=== PATIENT | female | born 1980 | race American Indian/Alaskan Native ===

== ENCOUNTER 2018-11-08 07:05 | Day surgery (SDC) | payer OTHER ==
[~2018-11-08] VITALS: Ht 162.6 cm; Wt 99.8 kg
[~2018-11-08 07:05] MED LIST: DAILY MULTIPLE1 EACH PO; PRENATABS RX T1 EACH PO; SERTRALINE HCL100 MG PO; VITAMIN D2000 UNIT PO
[2018-11-08] MEDS ORDERED: IRON325 M1 PO (07:24)
--- NOTE | 2018-11-08 09:00 | NUR ---
11/08/18 0900 Angelita Padilla 0870 PT ARRIVED TO PACU ON 3L VIA MASK, PT WAKES TO VERBAL STIMULI AND DENIES PAIN AND NAUSEA. PT BACK TO SLEEP. 0855 PT WAKES AND IS REORIENTED TO PACU, O2 REMOVED AND PT SIPPING JUICE AND WATER. HOB INCREASED. PLAN OF CARE DISCUSSED.
--- NOTE | 2018-11-09 08:17 | OR ---
[facility] [address], [place] [address] Signed DATE OF OPERATION: 11/08/2018 SURGEON: Boyd Choi MD PREOPERATIVE DIAGNOSES: 1. Epigastric abdominal pain. 2. Proximal esophageal dysphagia. 3. Iron-deficiency anemia. POSTOPERATIVE DIAGNOSIS: Mild punctate hemorrhagic gastritis. PROCEDURE PERFORMED: Esophagogastroduodenoscopy with CLOtest and biopsies of the antrum and gastroesophageal junction. ESTIMATED BLOOD LOSS: None. INDICATIONS: Lyndsay is a 38-year-old female, asked to see me for upper endoscopy. She has had epigastric abdominal pain. She is not sure what makes it better or worse. She also describes proximal esophageal dysphagia up around the larynx and the sternal notch. She said even water can cause some dysphagia. She has developed iron-deficiency anemia. She has been on iron tablets. In the office, I gave Lyndsay a pamphlet on upper endoscopy. We looked at that together in detail. She understands the nature of the test along with the risks including, but not limited to, gas, bloating, crampy abdominal pain, bleeding, perforation requiring surgery, and missed diagnosis. She also understands the need for IV conscious sedation. She had expressed her understanding and wished to proceed. DESCRIPTION OF PROCEDURE: Lyndsay was taken into the endoscopy suite and placed in the supine position. The posterior oropharynx was anesthetized with lidocaine spray. A bite block was utilized for the case. She was given a total of 6 mg of Versed and 100 mcg of fentanyl to cover the case. The adult gastroscope was introduced and advanced out to the third portion of the duodenum under direct visualization of camera without difficulty. The duodenum and pyloric channel were unremarkable. She clearly has mild punctate hemorrhagic diffuse gastritis. I am sure this is the source of her iron-deficiency anemia. No donny ulcerations. We took a biopsy from the antrum for CLOtest as well as pathologic review. Electronically Signed By: BOYD CHOI MD 11/09/18 0817 PATIENT NAME: LYNDSAY SANCHEZ OPERATIVE REPORT DATE OF : 76 REPORT #: [id number] PHYSICIAN: BOYD CHOI MD PCP: NAYLA JI REPORT IS CONFIDENTIAL AND NOT TO BE RELEASED WITHOUT AUTHORIZATION [facility] [address], [place] [address] Signed We took multiple pictures throughout for photodocumentation. Upon retroflexion of the scope, she may have just a very tiny hiatal hernia. Otherwise, no gastric or esophageal varices. The scope was withdrawn up to the area of the GE junction, which was compliant without stricture. She does have some granulation tissue along the Z-line with a little irritation. No Nielsen's mucosa. No distal, middle, or upper esophagitis. We did look carefully as we withdrew the scope and we saw no irritation in the upper esophagus. We had taken an additional biopsy at the GE junction for pathologic review. After this, the gas was suctioned out and the gastroscope removed. Lyndsay tolerated the procedure quite well. RECOMMENDATIONS: I will see Lyndsay back in my office in 7 to 14 days to review her results. Boyd Choi MD ALB/MODL /[id number] cc: Nayla Choi MD Copies: NAYLA JI ANDREW L MD ~ Electronically Signed By: BOYD CHOI MD 11/09/18 0817 PATIENT NAME: LYNDSAY SANCHEZ OPERATIVE REPORT DATE OF : 76 REPORT #: [id number] PHYSICIAN: BOYD CHOI MD PCP: NAYLA JI REPORT IS CONFIDENTIAL AND NOT TO BE RELEASED WITHOUT AUTHORIZATION
--- NOTE | 2018-11-12 14:44 | PATH ---
[facility] [address] [place], [place] [address] Signed SPECIMEN(S): A ANTRUM SPECIMEN(S): B GE JUNCTION SPECIMEN SOURCE: A. ANTRUM B. GE JUNCTION CLINICAL HISTORY: Epigastric pain; esophageal dysphagia; anemia. Postop: Mild hemorrhagic gastritis. MICROSCOPIC DESCRIPTION: Histologic sections of all submitted blocks are examined by light microscopy. These findings, together with the gross examination, support the pathologic diagnosis. FINAL PATHOLOGIC DIAGNOSIS: A. Stomach, antrum, biopsy: - Antral mucosa with chronic inactive gastritis. - No Helicobacter organisms identified on HE stain. - Negative for dysplasia or malignancy. B. Gastroesophageal junction, biopsy: - Squamocolumnar junctional mucosa with active chronic inflammation and reactive epithelial changes. - No Helicobacter organisms identified on HE stain. - Negative for intestinal metaplasia, dysplasia or malignancy. NAL:glc:C2NR GROSS DESCRIPTION: Two specimens are received in two containers, labeled "RM." A. The specimen, labeled "RM, antrum biopsy #1," is received in formalin and consists of one jimenez soft tissue fragment that measures 0.4 cm in greatest dimension. The specimen is entirely submitted in cassette (A1). B. The specimen, labeled "RM, GE junction #2," is received in formalin and consists of one jimenez soft tissue fragment that measures 0.4 cm in greatest dimension. The specimen is entirely submitted in cassette (B1). FB (under the direct supervision of a pathologist) The Gross Description was prepared using a voice recognition system. The report was reviewed for accuracy; however, sound-alike word errors, addition and/or deletions may occur. If there is any PATIENT NAME: NOE SANCHEZ PATHOLOGY DATE OF : 76 REPORT #: [id number] PHYSICIAN: MEDINA HULL PCP: AKIRA JI REPORT IS CONFIDENTIAL AND NOT TO BE RELEASED WITHOUT AUTHORIZATION [facility] [address] [place] [address] Signed question about this report, please contact Client Services. PERFORMING LABORATORY: The technical component was performed by [facility] [place] [id number] (Volunteer Services Supervisor: Clarita Alcocer MD; CLIA# [id number]). Professional interpretation was performed by [facility], [address] [address] (Volunteer Services Supervisor: Nabor Dillon MD; CLIA# [id number]). Diagnostician: Smitha Woods MD Pathologist Electronically Signed 11/12/2018 Copies: ~ PATIENT NAME: NOE SANCHEZ PATHOLOGY DATE OF : 76 REPORT #: [id number] PHYSICIAN: MEDINA HULL PCP: AKIRA JI REPORT IS CONFIDENTIAL AND NOT TO BE RELEASED WITHOUT AUTHORIZATION
== END 2018-11-08 09:20 | disposition home or self-care (01) ==
LOC: OPS 07:05 → DS 07:05 → OPS 08:15 → DS 08:15 → OPS 09:20
PROVIDERS: Colon & Rectal Surgery
PROC: 0DB48ZX Excision of Esophagogastric Junction, Via Natural or Artificial Opening Endoscopic, Diagnostic (ICD-10-PCS; 2018-11-08)
PROC: 0DB78ZX Excision of Stomach, Pylorus, Via Natural or Artificial Opening Endoscopic, Diagnostic (ICD-10-PCS; principal; 2018-11-08 08:15)
DX: K29.51 Unspecified chronic gastritis with bleeding (principal); K20.9 Esophagitis, unspecified; K44.9 Diaphragmatic hernia without obstruction or gangrene; D50.9 Iron deficiency anemia, unspecified; J45.909 Unspecified asthma, uncomplicated; M19.90 Unspecified osteoarthritis, unspecified site; F32.9 Major depressive disorder, single episode, unspecified; Z79.899 Other long term (current) drug therapy
CPT/HCPCS: 84703; 86677; G0500; J2250; J3010; J7120

== ENCOUNTER 2019-11-08 20:59 | Emergency (ER) | payer OTHER | END 2019-11-08 22:48 | disposition home or self-care (01) | LOC: ED 20:59 | DX: S52.614A Nondisplaced fracture of right ulna styloid process, initial encounter for closed fracture (principal); S52.501A Unspecified fracture of the lower end of right radius, initial encounter for closed fracture; W22.8XXA Striking against or struck by other objects, initial encounter; F41.9 Anxiety disorder, unspecified; J45.909 Unspecified asthma, uncomplicated; Z79.899 Other long term (current) drug therapy ==

== ENCOUNTER 2024-03-14 07:43 | Day surgery (SDC) | payer OTHER ==
[2024-03-07 15:20] VITALS: BP 11/74
[~2024-03-14] VITALS: Ht 162.6 cm; Wt 82.7 kg
[~2024-03-14 07:43] MED LIST changes: +IBLOOD GLUCOSE TEST STRIP 1 EA TEST VI PRN; +IRON325 M1 PO; +LACTATED RINGER'S 1,000 ML IV SCH; +LIDOCAINE HCL 1% 5 ML SDV INJ ONE; +LOMAIRA8 MG PO; +MULTI VITAMIN1 EACH PO; +NORCO 5-325 TA1 EACH PO; +propofoL 200 MG/20 ML VIAL ONE
[2024-03-14 07:51] VITALS: BP 122/76
--- NOTE | 2024-03-14 08:10 | NUR ---
S O LEAVING AND WILL RETURN.
[2024-03-14] MEDS ORDERED: LACTATED RINGER'S 1,000 ML IV ONE (09:04)
--- NOTE | 2024-03-14 09:34 | NUR ---
03/14/24 0934 Jazmin Verdugo 0944-PATIENT ARRIVED TO PACU ON 10L MASK NONAROUSABLE ORAL AIRWAY IN PLACE RR EVEN. ABDOMEN SOFT. IVF INFUSING. SR HR 70'S. PLACED ON 6L MASK
[2024-03-14 10:37] VITALS: BP 133/85
--- NOTE | 2024-03-15 07:03 | OR ---
[facility] [address] [place], [place] [address] Signed DATE OF OPERATION: 03/14/2024 SURGEON: Boyd Ragsdale MD PREOPERATIVE DIAGNOSES: 1. Screening. 2. Iron-deficiency anemia associated with constipation. POSTOPERATIVE DIAGNOSES: 1. A 10 mm polyp at 10 cm in rectum (snare). 2. A 4 mm polyp at 4 cm in rectum. 3. Zhhrayk-pw-vrzmekdu internal hemorrhoids. PROCEDURE: Colonoscopy with snare polypectomy, hot biopsy. ESTIMATED BLOOD LOSS: None. INDICATIONS: Lyndsay is a 43-year-old female, asked to see me for her initial screening colonoscopy. She has been trying to lose weight with the help of phentermine. She is not having much luck. She has been anemic and using iron tablets. She said it has made her really constipated. She has been using a stool softener. She said there is no family history of colon cancer or polyps. She had been asked to see me with respect to the above for a colonoscopy. In the office, I gave her a colonoscopy booklet. We reviewed that together. There is risk including, but not limited to gas bloating, crampy abdominal pain, bleeding, perforation requiring surgery, and missed diagnosis. We also reviewed the written instructions for the bowel prep line by line. She also understands the need for monitored anesthesia given her use of phentermine. We also asked her to do the prep in the morning and repeat it in the afternoon. She had expressed understanding and wished to proceed. She understands an adult person has to take her home afterwards. She had expressed understanding and wished to proceed. PROCEDURE NOTE: Lyndsay was taken into our endoscopy suite and placed in the left lateral decubitus position. She was given monitored anesthesia care with propofol infusion per nurse medical care administrator. A digital rectal exam was performed, this was unremarkable. No external hemorrhoids. She had good sphincter tone. There were no masses. The adult colonoscope was introduced and advanced under direct visualization of camera without difficulty. It Electronically Signed By: BOYD RAGSDALE MD 03/15/24 0703 PATIENT NAME: LYNDSAY SANCHEZ OPERATIVE REPORT DATE OF : 76 REPORT #: [id number] PHYSICIAN: BOYD RAGSDALE MD PCP: NAYLA JI PAC REPORT IS CONFIDENTIAL AND NOT TO BE RELEASED WITHOUT AUTHORIZATION [facility] [address] [place], [place] [address] Signed took some extra sedation, little abdominal compression to get the scope down into the base of the cecum itself. It took a minute to suction out the liquid particulate stool matter. We could then easily see the appendiceal orifice and ileocecal valve. The scope had been slowly withdrawn. She had no pathology throughout the entire colon. She had a 10 mm polyp at 10 cm in the rectum. We removed completely with the help of the snare. We then used a hot biopsy forceps to remove the 4 mm polyp down at 4 cm in the rectum. Upon retroflexion of scope, we could see that she has [id number]-fmcskpde internal hemorrhoid tissue. After this, the gas was suctioned out, colonoscope removed. Lyndsay tolerated the procedure quite well. RECOMMENDATIONS: I will see Lyndsay back in my office in 7 to 14 days to review her biopsy results. Boyd Ragsdale MD ALB/MODL /[id number] cc: Patient chart Nayla Ragsdale MD Copies: NAYLA JI ANDREW L MD ~ Electronically Signed By: BOYD RAGSDALE MD 03/15/24 0703 PATIENT NAME: LYNDSAY SANCHEZ CHILO OPERATIVE REPORT DATE OF : 76 REPORT #: [id number] PHYSICIAN: BOYD RAGSDALE MD PCP: NAYLA JI REPORT IS CONFIDENTIAL AND NOT TO BE RELEASED WITHOUT AUTHORIZATION
--- NOTE | 2024-03-18 14:05 | PATH ---
[facility] [address] [place], [place] [address] Signed SPECIMEN(S): A RECTAL POLYP, 10 CM SPECIMEN(S): B RECTAL POLYP, 4 CM SPECIMEN SOURCE: A. RECTAL POLYP, 10 CM B. RECTAL POLYP, 4 CM CLINICAL HISTORY: Screening. Postop: Rectal polyps, internal hemorrhoids. FINAL PATHOLOGIC DIAGNOSIS: A. Rectal polyp at 10 cm, biopsies: - Fragments of tubular adenoma. B. Rectal polyp at 4 cm, biopsy: - Tubular adenoma. AMB MICROSCOPIC EXAMINATION: Histologic sections of all submitted blocks are examined by light microscopy. These findings, together with the gross examination, support the pathologic diagnosis. GROSS DESCRIPTION: A. The specimen, labeled and designated "Manta, R, rectal polyp, 10 cm," is received in formalin and consists of multiple jimenez soft tissue fragments with bowel debris, 0.2-0.5 cm.Entirely submitted in (A1). B. The specimen, labeled and designated "Manta, R, rectal polyp, 4 cm," is received in formalin and consists of one jimenez soft tissue fragment, 0.5 cm. Entirely submitted in (B1). AB (under the direct supervision of a pathologist) The Gross Description was prepared using a voice recognition system. The report was reviewed for accuracy; however, sound-alike word errors, addition and/or deletions may occur. If there is any question about this report, please contact Client Services. ADDITIONAL NOTES: Immunohistochemical and/or in situ hybridization studies if performed in this case included appropriate positive controls that reacted as expected. This test was developed and its performance characteristics determined by [email or web address]. It has not been cleared or PATIENT NAME: NOE SANCHEZ PATHOLOGY DATE OF : 76 REPORT #: [id number] PHYSICIAN: MEDINA HULL PCP: AKIRA JI PAC REPORT IS CONFIDENTIAL AND NOT TO BE RELEASED WITHOUT AUTHORIZATION [facility] [address] [facility] [place] [address] Signed approved by the U.S. Food and Drug Administration. The FDA has determined that such clearance or approval is not necessary. This test is used for clinical purposes. It should not be regarded as investigational or for research. [email or web address] is certified under the Clinical Laboratory Improvement Amendments of 1988 (CLIA) as qualified to perform high complexity clinical laboratory testing. PERFORMING LABORATORY: Technical component was performed by [email or web address], [address] [place] [id number] (CLIA# [id number]). Professional interpretation was performed by [facility] - [address] [id number] Diagnostician: Clarita Alcocer MD Pathologist Electronically Signed 03/18/2024 Copies: ~ PATIENT NAME: NOE SANCHEZ PATHOLOGY DATE OF : 76 REPORT #: [id number] PHYSICIAN: MEDINA PATHOLOGY PCP: AKIRA JI PAC REPORT IS CONFIDENTIAL AND NOT TO BE RELEASED WITHOUT AUTHORIZATION
== END 2024-03-14 10:45 | disposition home or self-care (01) ==
LOC: DS 07:43
PROVIDERS: ATTEND Colon & Rectal Surgery
PROC: 0DBP8ZZ Excision of Rectum, Via Natural or Artificial Opening Endoscopic (ICD-10-PCS; principal; 2024-03-14 09:30)
DX: Z12.11 Encounter for screening for malignant neoplasm of colon (principal); D12.8 Benign neoplasm of rectum; D50.9 Iron deficiency anemia, unspecified; K64.8 Other hemorrhoids; E66.3 Overweight; Z68.30 Body mass index [BMI] 30.0-30.9, adult; K59.00 Constipation, unspecified
CPT/HCPCS: 00811; J2704; J7121